=== PATIENT | male | born 1945 | race Caucasian/White ===

== ENCOUNTER 2023-10-10 06:02 | Day surgery (SDC) | payer MEDICARE, OTHER, SELFPAY ==
[2023-10-10] VITALS (34 sets, daily range): BP systolic 83–148; BP diastolic 52–79; BMI 30.5
--- NOTE | 2023-10-10 07:00 | W.SUR.PREOP ---
Pre-Operative Surgical Note
-
I have examined this patient prior to the performance of the scheduled procedure.
The patient's condition is unchanged from the time of the current History and
Physical and the patient is able to undergo the scheduled procedure.
[2023-10-10 07:32] LABS: Hematocrit 44.5 % (39.0-52.0); Hemoglobin 15.2 g/dL (13.0-18.0); Mean Corp Hgb Conc. 34.2 g/dL (33.0-37.0); Mean Corpuscular Hgb 37.1 pg (27.0-31.0); Mean Corpuscular Volume 108.5 fL (80.0-94.0); Mean Platelet Volume 11.4 fL (7.4-10.4); Platelet Count 110 10^3/uL (130-400); Red Cell Dist. Width 15.3 % (11.5-14.5); White Blood Cell Count 5.5 10^3/uL (4.8-10.8)
[2023-10-10 07:46] LABS: APTT 41.6 Sec (23.4-35.0)
[2023-10-10 07:47] LABS: Blood Urea Nitrogen 17 mg/dl (9-20); Calcium 9.3 mg/dl (8.4-10.2); Carbon Dioxide 30 mmol/L (22-30); Chloride 101 mmol/L (98-107); Estimated Creatinine Clearance 46 ml/min; Glucose 105 mg/dl (70-99); Potassium 3.8 mmol/L (3.5-5.1); Sodium 135 mmol/L (135-145); eGFR 55.53
--- NOTE | 2023-10-10 09:07 | W.SUR.POST ---
Surgical Immediate Post Op
Note
Pre Op Diagnosis: Peripheral arterial disease
Post Op Diagnosis: Peripheral arterial disease
Procedure Performed: Right lower extremity arteriogram with angioplasty to anterior tibial stenosis x 2
Primary Surgeon: Herbert Monaco MD
Secondary Surgeons: N/A
Anesthesia: MAC
Estimated Blood Loss: Less than 5 cc
Fluids: See anesthesia flowsheet
Drains/Shunts: N/A
Specimens/Cultures: N/A
Doppler/Duplex/Angio (Y/N): Y
Complications: None
Operative Findings: Right lower extremity with palpable DP pulse upon completion of intervention
--- NOTE | 2023-10-10 09:11 | W.PV.INTER ---
VPI Note
Pre Admission Note
Functional Status: Light Work
Ambulation: Ambulate Independently
Pre Op Medications
Pre Op ASA: No
Pre Op Statin: No, for Medical Reason (Liver CA)
Pre Op JULIO CESAR Inhibitor/ARB: No
Pre Op P2y12 Antagonist: None
Pre Op Beta Blockers: Chronic > 30 Days
Pre Op Chronic Anticoagulant: Warfarin
Pre Op Cilostazol: No
Post Op Medications
Post Op ASA: Yes
Post Op Statin: No, for Medical Reason (Liver CA)
Post Op JULIO CESAR Inhibitor/ARB: No
Post Op P2y12 Antagonist: None
Post Op Beta Blockers: Chronic > 30 Days
Post Op Chronic Anticoagulant: Warfarin
Post Op Cilostazol: No
[2023-10-10] MEDS: ROXICODONE 5 MG PO (11:12)
[2023-10-10] MEDS: TYLENOL 650 MG PO (11:13)
--- NOTE | 2023-10-10 11:28 | SUR.PHASEI ---
patient received at 0930cold to touch, states chronically cold; [employer] reports difficulty obtaining pulse oximetry, feet cold, unable to obtain doppler signals. E Rojas FR[employer]ER -notified and warm blankets on patient and feet wrapped - within 15minutes -
some doppler signals obtained - except left DP - E Rojas visited in pacu. vss, alert and oriented c/o some pain right great toe - refuses meds. Right foot continued to get warmer and palpable DP on right by 10:30 doppler signal left DP as well.
discharge to cathode washer with report and hand off at bedside.
--- NOTE | 2023-10-10 13:19 | OR.RPT ---
Operative Report
Operative Report
PROCEDURE DATE: 10/10/2023
Preoperative diagnosis: Ischemic rest pain right foot, ischemic rest pain lesser so left foot
Postoperative diagnosis: Same
Procedure:
1. Duplex assisted left common femoral artery cannulation.
2. Right lower extremity arteriogram with third order vessel catheterization of right dorsalis pedis via left common femoral artery puncture.
3. Balloon angioplasty of right distal anterior tibial artery with 2.5 mm angioplasty balloon.
4. Balloon angioplasty of proximal anterior tibial artery with 3 mm angioplasty balloon.
5. Left lower extremity arteriogram.
6. Supervision and interpretation.
Surgeon: Carlos Enrique
Discharge Rn: None
Complications: None
Anesthesia: Local, sedation
Fluoroscopy:
12.8 min
77 mGy
18.71 Gy.cm2
Indications for procedure:
Patient with symptoms of severe ischemic rest pain in both feet right side much worse than left. In addition dependent rubor type findings noted on exam. Brought for angiography. Risk/benefits/alternatives also discussed. Patient understood all
wish to proceed.
Description of procedure:
Patient was identified, brought to the operating room. Placed on the table in the supine position. After the adequate administration of anesthesia, the patient was prepped and draped in the standard surgical fashion. A standard preoperative
timeout was undertaken and everybody was in agreement with the plan.
The left common femoral artery was accessed with a micropuncture kit under direct duplex ultrasound guidance. A 5 Salvadorean sheath was then advanced over a 0.035 inch wire, and a heaton's hook catheter was advanced into the abdominal aorta.
Aortogram and pelvic angiogram was obtained. Findings as follows:
No significant stenosis was noted in the infrarenal aorta or bilateral common and external iliac arteries.
Using a floppy angled hydrophilic wire, the right common femoral artery was cannulated and the catheter was advanced. Right lower extremity arteriogram was obtained. Findings as follows:
(Note filling was very slow throughout the extremity arteries).
Common femoral artery:Patent with no significant stenosis
Profunda femoris artery:Patent with no significant stenosis
Superficial femoral artery:Patent with no significant stenosis
Popliteal artery: Patent with mild to behind the knee (less than 50%) stenosis.
Anterior tibial artery: Patent with proximal just beyond the origin focal moderate stenosis. Distally at the ankle occlusion noted with reconstitution of the dorsalis pedis artery at the very distal ankle/proximal foot.
Tibial peroneal trunk: Patent with mild proximal stenosis but appeared to be 50%.
Peroneal artery: Patent with no proximal stenosis, but distal half of artery very diseased/diminutive with very weak collateralization seen distally.
Posterior tibial artery: Patent, disease/diminutive throughout its course. Extensive disease in the distal third of the vessel and onto the foot. The proximal plantar arteries were patent but heavily diseased as well.
At this point I felt it was worth trying to revascularize the distal anterior tibial artery. I did not feel it was worth revascularizing the posterior tibial or peroneal arteries with their distal diminutive extensive disease. I therefore then
cannulated the distal superficial femoral artery and then exchanged for a Storq wire and an up and over a 5 Salvadorean 70 cm sheath. The patient was given appropriate dose of heparin. Next under roadmap assisted guidance is able to gain wire access
into the anterior tibial artery. I advanced my 4 Salvadorean CXI catheter. Next under roadmap assisted guidance I attempted to traverse the occluded area with a 0.014 inch wire. However was unable to do so as there was not enough body and the wire.
Therefore switch back to my 0.035 inch floppy hydrophilic wire. I was able to traverse the occlusion with this. With some difficulty I finally was able to daughter my 4 Salvadorean CXI catheter through this into the dorsalis pedis on the foot.
Angiogram confirmed is in the true lumen. I then exchanged for a SANDER HAND 0.014 inch wire. I then performed balloon angioplasty of the occluded segment with a 2.5 mm x 8 cm angioplasty balloon. Completion angiogram now demonstrated excellent result
with no significant residual stenosis in the distal anterior tibial artery. Now I turned my attention to the proximal anterior tibial artery. I then used a 3 mm x 4 cm angioplasty balloon to angioplasty that. Completion angiogram demonstrated
excellent result with no significant residual stenosis. At this point is very satisfied. I then exchanged back for a 0.035 inch wire and withdrew my sheath into the left external iliac artery. Left femoral angiogram and left lower extremity
arteriogram was obtained. This demonstrated no significant stenosis in the common femoral/profunda/SFA. Slow filling as with the other side was noted. Proximally there was three-vessel runoff but I could not visualize the runoff more distally as
the feeling was very slow. Would require catheterization more selectively to better visualize. At this point is very satisfied. Wires and catheters were withdrawn. Sheath was withdrawn and manual pressure was applied to the puncture site.
Patient was given some protamine to reverse the heparin. Hemostasis was fully achieved. The patient tolerated procedure well. Upon completion had a 1+ palpable right DP pulse.
== END 2023-10-10 15:39 | disposition home or self-care (01) ==
LOC: CATH 06:02
PROVIDERS: ATTENDING PHYSICIAN Surgery Vascular Surgery; FAMILY PHYSICIAN Family Medicine
DX: I70.221 Atherosclerosis of native arteries of extremities with rest pain, right leg (principal); I13.0 Hypertensive heart and chronic kidney disease with heart failure and stage 1 through stage 4 chronic kidney disease, or unspecified chronic kidney disease; N18.9 Chronic kidney disease, unspecified; I50.9 Heart failure, unspecified; I27.20 Pulmonary hypertension, unspecified; K21.9 Gastro-esophageal reflux disease without esophagitis; Z79.01 Long term (current) use of anticoagulants
CPT/HCPCS: 37228; C1725; 75710; 76937; 80048; 85027; 85610; 85730; 86850; 86900; 86901; C1769; C1887; Q9967